=== PATIENT | female | born 1950 | race Caucasian/White ===

== ENCOUNTER 2022-03-08 11:51 | Observation (INO) ==
[2022-03-08] MEDS ORDERED: Naloxone 0.4 MG/ML INJ IVP PRN (13:53)
[2022-03-08] MEDS ORDERED: Melatonin 3 MG TABLET PO PRN (13:53)
[2022-03-08] MEDS ORDERED: Acetaminophen 325 MG TABLET PO PRN (13:53)
[2022-03-08] MEDS ORDERED: Ondansetron 4 MG/2 ML VIAL IVP PRN (13:53)
[2022-03-08] MEDS ORDERED: Benzonatate 100 MG CAPSULE PO PRN (13:54)
[2022-03-08] MEDS ORDERED: Ipratropium 1 PUFF INHALER IH PRN (13:59)
[2022-03-08] MEDS ORDERED: cefTRIAXone 1,000 MG in 0.9 % Sodium Chloride 10 ML IVP SCH ×2 (15:00→16:00)
[2022-03-08] MEDS ORDERED: Azithromycin 500 MG in 0.9 % Sodium Chloride 250 ML IVPB SCH (15:00)
[2022-03-08 16:20] LABS: Hematocrit 24.3 % (35.3-44.9); Hemoglobin 7.8 g/dL (11.5-15.4); Immature Granulocytes % 0.2 % (0-4); Lymphocytes # 0.7 K/mcL (0.6-4.6); Lymphocytes % 7.4 %; Mean Corpuscular HGB Conc 32.1 g/dL (31.6-35.5); Mean Corpuscular Hemoglobin 31.6 pg (28.0-33.3); Mean Corpuscular Volume 98.4 fL (83.0-100.0); Mean Platelet Volume 10.8 fL (9.4-12.4); Monocytes # 0.6 K/mcL (0.0-1.3); Monocytes % 6.4 %; Neutrophils # 7.5 K/mcL (1.6-8.9); Nucleated Red Blood Cells 0.7 /100 WBC (0); Platelet Count 145 K/mcL (140-400); Red Blood Count 2.47 M/mcL (3.82-4.97); Red Cell Distribution Width 17.2 % (11.5-14.5); White Blood Count 8.7 K/mcL (4.3-11.1)
[2022-03-08] MEDS ORDERED: Pantoprazole 40 MG VIAL IVP SCH (16:28)
[2022-03-08 16:34] LABS: Potassium 5.1 mEq/L (3.5-5.1)
[2022-03-08 16:36] LABS: Albumin 3.1 g/dL (3.5-5.7); Albumin/Globulin Ratio 1.3 (1.1-2.2); Bilirubin,Direct 0.1 mg/dL (0.0-0.2); Bilirubin,Indirect 0.4 mg/dL (0.0-1.0); Bilirubin,Total 0.5 mg/dL (0.3-1.0); Globulin 2.4 g/dL (2.4-3.5); Total Protein 5.5 g/dL (6.4-8.9)
[2022-03-08 16:44] LABS: Troponin I 0.36 ng/mL (< 0.04)
[2022-03-08] MEDS ORDERED: *HR* EPINEPHrine 1 MG/10 ML SYRINGE IVP ONE (17:00)
[2022-03-08] MEDS ORDERED: *HR* Midazolam HCl 2 MG/2 ML VIAL IV ONE (17:26)
[2022-03-08] MEDS ORDERED: Artificial Tears SOLN 15 ML BOTTLE BOTH EYES PRN (17:26)
[2022-03-08] MEDS ORDERED: Dexmedetomidine HCl 400 MCG/100 ML MLS IVC ONE (17:30)
[2022-03-08] MEDS ORDERED: Dexmedetomidine HCl 400 MCG/100 ML MLS IVC SCH (17:30)
[2022-03-08] MEDS ORDERED: FentaNYL (PF) 1,000 MCG/100 ML IV.SOLN IVC SCH (17:30)
[2022-03-08] MEDS ORDERED: Norepinephrine 4 MG/254 ML IV.SOLN IVC SCH (17:45)
[2022-03-08 18:30] LABS: ABG Base Excess -6 mEq/L (-2 to 3); ABG HCO3 19 mEq/L (21-27); ABG Oxygen Saturation 99 % (95-98); ABG PCO2 30 mmHg (35-45); ABG PO2 149 mmHg (85-104); ABG TCO2 19 mEq/L (20-26); Blood Gas VT 380 cc
[2022-03-08 19:33] LABS: Basophils % 0.1 %; Hematocrit 19.7 % (35.3-44.9); Immature Granulocytes % 1.9 % (0-4); Lymphocytes # 1.5 K/mcL (0.6-4.6); Lymphocytes % 19.1 %; Mean Corpuscular HGB Conc 28.4 g/dL (31.6-35.5); Mean Corpuscular Volume 112.6 fL (83.0-100.0); Mean Platelet Volume 11.4 fL (9.4-12.4); Monocytes # 0.5 K/mcL (0.0-1.3); Neutrophils # 5.8 K/mcL (1.6-8.9); Red Blood Count 1.75 M/mcL (3.82-4.97); Red Cell Distribution Width 17.7 % (11.5-14.5); Segmented Neutrophils % 72.9 %; White Blood Count 7.9 K/mcL (4.3-11.1)
[2022-03-08 19:40] LABS: Hemoglobin 5.6 g/dL (11.5-15.4); Platelet Count 75 K/mcL (140-400)
[2022-03-08 19:41] LABS: Hypochromasia Present (Not Present); INR 1.8; Macrocytosis Present (Not Present); Prothrombin Time 20.2 Seconds (9.4-12.1)
[2022-03-08 19:42] LABS: VBG Ionized Calcium 1.64 mmol/L (1.15-1.35)
[2022-03-08 19:43] LABS: Activated Partial Thrombo Time 43.6 Seconds (26.0-36.0)
[2022-03-08] MEDS ORDERED: 0.9 % Sodium Chloride 500 ML ONE (19:44)
[2022-03-08] MEDS ORDERED: Octreotide 400 MCG in 0.9 % Sodium Chloride 100 ML IVC SCH (19:45)
[2022-03-08] MEDS ORDERED: Pantoprazole 40 MG in 0.9 % Sodium Chloride Mini Bag 100 ML IVC SCH (19:45)
[2022-03-08 19:49] LABS: Albumin 1.6 g/dL (3.5-5.7); Albumin/Globulin Ratio 1.1 (1.1-2.2); Bilirubin,Direct 0.1 mg/dL (0.0-0.2); Bilirubin,Indirect 0.2 mg/dL (0.0-1.0); Bilirubin,Total 0.3 mg/dL (0.3-1.0); Calcium 9.6 mg/dL (8.6-10.3); Globulin 1.4 g/dL (2.4-3.5); Magnesium 1.4 mg/dL (1.6-2.6); Phosphorous 6.1 mg/dL (2.7-4.5); Potassium 4.3 mEq/L (3.5-5.1)
[2022-03-08] MEDS ORDERED: Dextrose Gel 15 GM/37.5 ML TUBE PO PRN ×2 (19:49)
[2022-03-08] MEDS ORDERED: *HR* Dextrose 50 % in Water (Syg) 50 ML SYRINGE IVP PRN (19:49)
[2022-03-08] MEDS ORDERED: D5% in Water 1,000 ML IVC PRN (19:49)
[2022-03-08] MEDS ORDERED: Insulin Human Regular 10 UNIT in 0.9 % Sodium Chloride 10 ML IV ONE (19:50)
[2022-03-08] MEDS ORDERED: Artificial Tears SOLN 15 ML BOTTLE BOTH EYES SCH (20:00)
[2022-03-08] MEDS ORDERED: Albumin 25% 25gram/100mL 50 GM/200 ML IV.SOLN ONE (20:11)
[2022-03-08] MEDS ORDERED: 0.9 % Sodium Chloride 1,000 ML ONE (20:11)
[2022-03-08] MEDS ORDERED: Iopamidol - 370 500 ML MLS IVP ONE (20:27)
[2022-03-08] MEDS ORDERED: Chlorhexidine Rinse 15 ML MOUTHWASH MM SCH (21:00)
[2022-03-08] MEDS ORDERED: *HR* Heparin 5,000 UNIT/ML VIAL SQ SCH (22:00)
[2022-03-08] MEDS ORDERED: Budesonide/Formoterol 160/4.5 1 PUFF INH IH SCH (22:00)
[2022-03-08 22:50] VITALS: BP 55/29; PULSE 49; TEMP 96.6
[2022-03-08 23:38] LABS: ABG Base Excess -11 mEq/L (-2 to 3); ABG HCO3 19 mEq/L (21-27); ABG Oxygen Saturation 98 % (95-98); ABG PCO2 70 mmHg (35-45); ABG PH 7.04 pH Units (7.32-7.45); ABG PO2 143 mmHg (85-104); ABG TCO2 21 mEq/L (20-26)
[2022-03-08] MEDS ORDERED: Sodium Bicarbonate 75 MEQ in 0.45 % Sodium Chloride 1,000 ML IVC SCH (23:45)
[2022-03-08 23:50] VITALS: O2SAT 99
[2022-03-08] MEDS ORDERED: *HR* LORazepam 2 MG/ML VIAL IVP PRN (23:57)
[2022-03-09] MEDS ORDERED: Insulin LISPRO 300 UNITS/3 ML VIAL SUBQ SCH
[2022-03-09] MEDS ORDERED: Glycopyrrolate 0.2 MG/ML VIAL IVP ONE (00:15)
[2022-03-09] MEDS ORDERED: *HR* Amiodarone 450 MG/9 ML VIAL IVC ONE (00:44)
[2022-03-09] MEDS ORDERED: *HR* EPINEPHrine 1 MG/10 ML SYRINGE IVP ONE (00:44)
[2022-03-09] MEDS ORDERED: *HR* Amiodarone Premix 360 MG/200 ML BAG IVC ONE (00:44)
[2022-03-09] MEDS ORDERED: cefTRIAXone 1,000 MG in 0.9 % Sodium Chloride 10 ML IVP SCH (09:00)
== END 2022-03-09 00:45 | disposition expired ==
LOC: 3NENU → ICNU 17:16
PROVIDERS: ADMIT Internal Medicine; ATTEND Internal Medicine